=== PATIENT | female | born 1970 | race American Indian/Alaskan Native ===

== ENCOUNTER 2020-01-02 14:41 | Emergency (ER) | payer SELFPAY ==
--- NOTE | 2020-01-02 15:32 | XRay Report ---
CHEST PA AND LATERAL VIEWS INDICATION: SOB, cough. COMPARISON: None. FINDINGS: Support devices: None. Heart: Within normal limits. Lungs/Pleura: Patchy bilateral airspace disease is seen, this is predominantly peripheral with sparin g of the apices. No significant effusion, no pneumothorax. IMPRESSION: 1. Patchy pulmonary opacities are concerning for atypical infection, viral etiologies should be consi dered. Signer Name: Hayden Fernandez MD Signed: 01/02/2020 3:28 PM Workstation Name: [id number]
[2020-01-02 17:27] VITALS: BP 145/70
[2020-01-02 17:38] LABS: Basophils # (Auto) 0.1 K/mm3 (0.0-0.1); Basophils % (Auto) 0.9 % (0.0-1.8); Hematocrit 41.1 % (30.3-42.9); Hemoglobin 13.1 gm/dl (10.1-14.3); Lymphocytes # (Auto) 2.2 K/mm3 (1.2-5.4); Lymphocytes % (Auto) 23.8 % (13.4-35.0); Mean Corpuscular HGB Conc 32 % (30-34); Mean Corpuscular Volume 82 fl (79-97); Monocytes # (Auto) 0.9 K/mm3 (0.0-0.8); Monocytes % (Auto) 9.6 % (0.0-7.3); Platelet Count 251 K/mm3 (140-440); Red Blood Count 5.03 M/mm3 (3.65-5.03); Red Cell Distribution Width 13.8 % (13.2-15.2)
[2020-01-02 17:58] LABS: Alanine Aminotransferase 15 units/L (7-56); Albumin 3.6 g/dL (3.9-5); BUN/Creatinine Ratio 18; Blood Urea Nitrogen 18 mg/dL (7-17); Calcium 9.7 mg/dL (8.4-10.2); Hemolysis Index 8
--- NOTE | 2020-01-02 18:01 | Emergency Department Report ---
ED Shortness of Breath HPI - General Chief Complaint: Upper Respiratory Infection Stated Complaint: SOB Time Seen by Provider: 01/02/20 16:52 Source: patient Mode of arrival: Ambulatory Limitations: No Limitations - History of Present Illness Initial Comments: This is a 49-year-old female with history of diabetes mellitus who presents with positive COVID-19 test. She has had mild headache, shortness of breath and cough. She does have lack of taste. She has mild symptoms. Positive COVID-19 test occurred 6 days ago on last Wednesday. This is her third COVID-19 test provided by her employer. She works in healthcare setting. PCP Dr. Vidhi SEGOVIA Complaint: shortness of breath, cough -: Gradual, days(s) (6 days), week(s) Severity: mild Consistency: constant Improves With: nothing Worsens With: nothing Known History Of: other (COVID-19 positive test on Wednesday 6 days ago) Associated Symptoms: cough, other (Mild headache, lack of taste) - Related Data Previous Rx's Medication Instructions Recorded Last Taken Type Azithromycin [Zithromax Z-ABIMAEL] 250 mg PO DAILY 5 Days #6 tablet 01/02/20 Unknown Rx Allergies Allergy/AdvReac Type Severity Reaction Status Date / Time No Known Allergies Allergy Unverified 07/19/14 12:47 ED Review of Systems ROS: Stated complaint: SOB Other details as noted in HPI Comment: All other systems reviewed and negative Constitutional: denies: fever, malaise Eyes: denies: as per HPI Respiratory: cough, shortness of breath Gastrointestinal: denies: abdominal pain, nausea Neurological: headache. denies: numbness, paresthesias ED Past Medical Hx - Past Medical History Previous Medical History?: Yes Hx Diabetes: Yes - Family History Family history: hypertension - Social History Smoking Status: Never Smoker Substance Use Type: None - Medications Home Medications: Home Medications Medication Instructions Recorded Confirmed Last Taken Type Azithromycin [Zithromax Z-ABIMAEL] 250 mg PO DAILY 5 Days #6 tablet 01/02/20 Unknown Rx ED Physical Exam - General Limitations: No Limitations General appearance: alert, in no apparent distress, other (Patient appears well, she ambulates without difficulty. No work of breathing.) - Head Head exam: Present: atraumatic, normocephalic - Eye Eye exam: Present: normal appearance - ENT ENT exam: Present: mucous membranes moist - Neck Neck exam: Present: normal inspection - Respiratory Respiratory exam: Present: normal lung sounds bilaterally. Absent: respiratory distress, wheezes, rales, rhonchi - Cardiovascular Cardiovascular Exam: Present: regular rate, normal rhythm, normal heart sounds. Absent: systolic murmur, diastolic murmur, rubs, gallop - GI/Abdominal GI/Abdominal exam: Present: soft, normal bowel sounds. Absent: distended, tenderness, guarding, rebound - Extremities Exam Extremities exam: Present: normal inspection - Neurological Exam Neurological exam: Present: alert, oriented X3, normal gait - Psychiatric Psychiatric exam: Present: normal affect, normal mood - Skin Skin exam: Present: warm, dry, intact, normal color. Absent: rash ED Course Vital Signs 01/02/20 01/02/20 14:47 17:23 Temperature 98.4 F 98.6 F Pulse Rate 93 H 87 Respiratory 20 18 Rate Blood Pressure 145/70 Blood Pressure 148/74 [Right] O2 Sat by Pulse 94 98 Oximetry ED Medical Decision Making - Lab Data Result diagrams: 01/02/20 16:31 - Radiology Data Radiology results: report reviewed, image reviewed INDICATION: SOB, cough. COMPARISON: None. FINDINGS: Support devices: None. Heart: Within normal limits. Lungs/Pleura: Patchy bilateral airspace disease is seen, this is predominantly peripheral with sparing of the apices. No significant effusion, no pneumothorax. IMPRESSION: 1. Patchy pulmonary opacities are concerning for atypical infection, viral etiologies should be considered. - Medical Decision Making Positive COVID-19 infection. Patient has typical symptoms of coronavirus COVID- 19 infection. Chest radiograph showed mild patchy airspace lung disease. Patient is ambulatory without difficulty. As per our local hospital standard, patient received prescription for azithromycin. She understands to self isolate self quarantine for the following 8 days. Critical care attestation.: If time is entered above; I have spent that time in minutes in the direct care of this critically ill patient, excluding procedure time. ED Disposition Clinical Impression: COVID-19 Disposition: DC-01 TO HOME OR SELFCARE Is pt being admited?: No Does the pt Need Aspirin: No Condition: Stable Instructions: COVID-19 Additional Instructions: Please self isolate self quarantine from now until January 09. Prescriptions: Azithromycin [Zithromax Z-ABIMAEL] 250 mg PO DAILY 5 Days #6 tablet Referrals: YANA REYNOLDS MD [Staff Physician] - as needed Forms: Work/School Release Form(ED)
== END 2020-01-02 18:30 | disposition home or self-care (01) ==
LOC: ED 14:41
DX: U07.1 COVID-19 (principal); E11.9 Type 2 diabetes mellitus without complications; Z79.2 Long term (current) use of antibiotics
CPT/HCPCS: 36415; 71046; 80053; 85025; 99283